=== PATIENT | female | born 1995 | race Caucasian/White ===

== ENCOUNTER 2016-07-13 22:31 | Emergency (ER) | payer OTHER ==
[~2016-07-13 22:31] MED LIST: ALBUTEROL17 GM INH; BACTROBAN22 GM TP; CARVEDILOL3.125 MG PO; CLEOCIN150 MG PO; HYDROCODON-ACE1 EAC7 PO; NO MEDICATIONS; NORCO 5/325 TAB1 TAB PO; PREDNISONE PO; ZOFRAN ODT4 MG/UDTAB SL; ZOLOFT PO
== END 2016-07-14 00:54 | disposition home or self-care (01) ==
LOC: CED 22:31
DX: F17.210 Nicotine dependence, cigarettes, uncomplicated (principal); J03.90 Acute tonsillitis, unspecified; Z88.5 Allergy status to narcotic agent; Z88.6 Allergy status to analgesic agent
CPT/HCPCS: 87651; 96372; 99283; J0561; J1100; J1885

== ENCOUNTER 2016-12-04 03:38 | Emergency (ER) | payer OTHER ==
[~2016-12-04] VITALS: Ht 182.9 cm; Wt 56.7 kg
--- NOTE | ~2016-12-04 | CR72 ---
[facility] A Service of [facility] & [facility] RADIOLOGY TEXT RESULTS PATIENT: MARCIA KIDD LOCATION: [facility] : [birth year] UNIT #: [id number] AGE: [address]: DAVID, ER DOCTOR SEX: F ORDER DR: [id number] [facility] [address] [place], [place] [address] [id number] MR#: [id number] Acc #: [id number] NAME: MARCIA KIDD : 1995 SEX: F STUDY DATE/TIME: UNIT: [facility] ROOM: STUDY DESCRIPTION: CR Chest Single View Portable Attending Physician: Er Doctor David Ordering Physician: Raúl Cage M.D. Primary Care Physician: [facility] MEDICAL IMAGING REPORT This report is preliminary unless electronic signature is present EXAM Portable chest 12/04 at 05:01 INDICATIONS Midsternal chest pain starting today with some associated dizziness. FINDINGS A single AP portable view of the chest shows both lungs to be clear. The heart is normal in size. The mediastinal contour is normal. No significant bone abnormalities are seen. IMPRESSION Normal portable chest. Dictated by... Kiel Sue Jr., M.D. THIS IS AN ELECTRONICALLY VERIFIED REPORT Kiel Sue Jr., M.D. at 12/04/2016 9:18 PM RLK/sai TD: 12/04/2016 15:12 JOB #: [id number] MEDICAL IMAGING REPORT Page 1 of 1 COPY
--- NOTE | ~2016-12-04 | EKG ---
PATIENT: MARCIA KIDD UNIT #: [id number] Ventricular Rate: 62 BPM Atrial Rate: 62 BPM P-R Interval: 138 ms QRS Duration: 88 ms Q-T Interval: 408 ms QTC Calculation(Bezet): 414 ms P [place]: 22 degrees Calculated R [place]: 86 degrees Calculated T [place]: 68 degrees Diagnosis Line: Normal sinus rhythm with sinus arrhythmia Diagnosis Line: Normal ECG Diagnosis Line: No previous ECGs available Diagnosis Line: Confirmed by TOIRBIO JUNE MD ([id number]) on Diagnosis Line: 12/04/2016 8:43:29 AM INTERPRETING MD: SHAYLEE CHAUDHARY
[2016-12-04 05:41] LABS: BASOPHIL% 0.6 % (0-2.5); EOSINOPHIL# 0.2 X10e3 (0-0.7); EOSINOPHIL% 2.3 % (0.0-7.0); HEMATOCRIT 43.1 % (35.0-45.0); HEMOGLOBIN 14.6 gm/dL (12.0-16.0); LYMPHOCYTE# 3.5 X10e3 (1.0-3.5); LYMPHOCYTE% 42.6 % (17.0-45.0); MEAN CELL VOLUME 83.3 FL (83-96); MEAN CORPUSCULAR HEMOGLOBIN 28.1 PG (28-34); MEAN CORPUSCULAR HGB CONC 33.8 g/dL (30-36); MEAN PLATELET VOLUME 7.7 FL (6.5-11.5); MONOCYTE# 0.7 X10e3 (0-1.0); MONOCYTE% 8.3 % (3.0-12.0); NEUTROPHIL# 3.8 X10e3 (1.5-7.1); NEUTROPHIL% 46.2 % (40-75); PLATELET COUNT 306 X10e3 (140-420); RED BLOOD COUNT 5.18 X10e (3.90-5.30); RED CELL DISTRIBUTION WIDTH 13.1 % (11.0-15.5); WHITE BLOOD COUNT 8.2 X10e3 (4.0-10.5)
[2016-12-04 05:42] LABS: DIFF IND NO
[2016-12-04 06:06] LABS: INR 1.1; PARTIAL THROMBOPLASTIN TIME 29.4 SECONDS (23.5-31.3); PROTHROMBIN TIME (PATIENT) 11.4 SECONDS (10.0-11.7)
[2016-12-04 06:10] LABS: ALBUMIN SERUM 4.5 g/dL (3.5-5.0); BILIRUBIN, DIRECT 0.1 mg/dL (0.0-0.2); BILIRUBIN,INDIRECT 0.9 mg/dL (0.0-0.9); CALCIUM SERUM 9.3 mg/dL (8.4-10.2); CREATININE SERUM 0.7 mg/dL (0.6-1.4); POTASSIUM 4.2 mmol/L (3.5-5.1)
== END 2016-12-04 07:08 | disposition left against medical advice (07) ==
LOC: CED 03:38
PROVIDERS: Emergency Medicine
DX: Z53.21 Procedure and treatment not carried out due to patient leaving prior to being seen by health care provider (principal)
CPT/HCPCS: 71010; 80048; 80076; 85025; 85610; 85730; 93005